=== PATIENT | male | born 1980 | race African-American/Black ===

== ENCOUNTER → 2019-05-19 | Outpatient (CLI) | payer BC ==
--- NOTE | 2019-05-19 11:43 | RAD ---
Bilateral renal ultrasound and renal artery duplex ultrasound for a central primary hypertension. Technique an findings: Real-time grayscale and color and spectral Doppler evaluation of the kidneys and renal vasculature is performed. The right kidney measures 11.6 cm and is free of any hydronephrosis or focal parenchymal abnormality. The left kidney measures 10.8 cm and is also free of any hydronephrosis or focal parenchymal abnormality. The aorta is nonaneurysmal, with a peak systolic velocity is 97.3 cm/s. Bilateral renal veins are patent. The right renal artery is patent with a proximal peak systolic velocity 136.3 cm/s, constituting a ratio of 1.4. Normal waveform morphologies are seen throughout the artery, and there is a resistive index of 0.58. The left renal artery is also patent with a peak systolic velocity proximally 139.9 cm/s, constituting a ratio of 1.4. There is normal waveform morphology throughout the left renal artery, and there is a resistive index on the left 0.68. The urinary bladder is fluid distended and grossly unremarkable. Urinary jets were not evaluated. IMPRESSION: 1. No sonographically discernible renal abnormality. 2. No evidence of renal artery stenosis. Electronically signed by: Cristopher Burton MD (05/19/2019 11:40 AM) [id number]
--- NOTE | 2019-05-19 14:06 | RAD ---
Duplex sonography is scrotum and testicles Clinical indications: Left testicular mass. FINDINGS: Duplex sonography of the scrotum and both testicles was performed including grayscale evaluation and color flow and waveform spectral analysis. The longitudinal and AP and transverse dimensions of the right testicle are 4.4 cm and 2.3 cm and 2.9 cm respectively. Color Doppler flow seen within the right testicle. There is a small ill-defined hypoechoic area within the mid right testicle measuring 6 mm in greatest dimension. The epididymis on right side is normal. Minimal hydrocele is seen on the right side. The longitudinal and AP and transverse dimensions of the left testicle are 4.4 cm and 2.3 cm and 2.9 cm respectively. There is an ill-defined hypoechoic and hyperechoic area within the superior pole of the left testicle measuring 13 mm in greatest dimension. This may represent a testicular neoplasm. There is a small peripheral cyst adjacent to the mass which measures 3 mm in size. The epididymis appears normal. The lump that the patient is feeling corresponds to the epididymis. In addition, a varicocele is seen on the left side. Minimal hydrocele is seen on left side. IMPRESSION: Left testicular mass measuring 13 mm. Palpable lump described on the left side by the patient corresponds to the epididymis which is normal in appearance. There is a varicocele on the left side. Small ill-defined hypoechoic area within the right testicle measuring 6 mm. Early testicular mass is possible here as well. Electronically signed by: Godfrey Torrez MD (05/19/2019 2:03 PM) [id number]
== END | disposition home or self-care (01) ==
LOC: US 09:00
PROVIDERS: ATTEND Family Medicine
DX: I86.1 Scrotal varices (principal); N43.3 Hydrocele, unspecified; N32.89 Other specified disorders of bladder; I10 Essential (primary) hypertension; N50.89 Other specified disorders of the male genital organs
CPT/HCPCS: 76770; 76870

== ENCOUNTER → 2020-10-14 | Outpatient (CLI) | payer BC, OTHER ==
--- NOTE | 2020-10-14 16:11 | RAD ---
INDICATION: Follow-up of testicular mass. COMPARISON: May 19, 2019 TECHNIQUE: Grayscale, color and spectral doppler ultrasound images obtained of the scrotum. FINDINGS: Right Testicle: 38 x 31 x 22 mm. Vascular flow is identified. Left Testicle: 47 x 30 x 18 mm. Vascular flow is identified. Within the right testicle there is repeat demonstration of a masslike structure identified which abi ures up to approximately 9 x 6 mm. When measured in a similar plane on prior this measured approximat isabel 7 x 5 mm. There is a couple of tiny echogenic foci within which could be from small associated ca lcifications. There is internal vascularity. Right-sided hydrocele. Small left-sided hydrocele as wel l. Within the left testicle there is a heterogenous masslike structure identified measuring approximatel y 18 x 12 mm with solid appearance. When measured on a similar plane this measured approximately 14 x 10 mm on prior. IMPRESSION: * Repeat demonstration of solid appearing bilateral testicular masses. These appear slightly increas ed in size when compared to prior exam. Again testicular neoplasm is included within the differential for these findings. Electronically signed by: Perry Cruz MD (10/14/2020 4:09 PM) [id number]
== END ==
LOC: US 15:23
PROVIDERS: ATTEND Family Medicine
DX: N50.89 Other specified disorders of the male genital organs (principal)
CPT/HCPCS: 76870